=== PATIENT | female | born 1930 | race Caucasian/White ===

== ENCOUNTER 2017-05-15 11:12 | Inpatient (IN) | payer MEDICARE ==
[2017-05-15] VITALS (7 sets, daily range): BP systolic 130–193; BP diastolic 65–90; PULSE 70–79; RESP 18–22; TEMP 97.6–99.6; O2SAT 92–95
[~2017-05-15] VITALS: Ht 167.6 cm; Wt 89.8 kg
[~2017-05-15 11:12] MED LIST: ADVA250A INH; ALPR-138 PO; ATOR20TA42 PO; GABA300C3 PO; LIDO5%T TOP; OXYC1SOL5 PO; RAMI10CA35 PO; ZOLP10TA3 PO
[2017-05-15] MEDS ORDERED: SODIUM CHLORIDE 0.9% FLUSH 10 ML FLUSH IVF PRN (11:30)
--- NOTE | 2017-05-15 11:37 | PD ---
HPI Chief Complaint: General Weakness Time Seen by Provider: 11:24 Travel History International Travel<30 days: No Contact w/Intl Traveler<30days: No Traveled to known affect area: No History of Present Illness HPI 87-year-old female with PMH of COPD, osteoarthritis, chronic back pain presents to the ED via EMS for evaluation after fall x 2 today. She states that she fell this morning while she was attempting to administer an enema in her hotel room. She states that a worker was able to help her up after that. The patient states that later this morning her legs felt weak and she fell to the ground. This also occurred in the bathroom. She denies any dizziness, palpitations, chest pain associated with the falls. After the second fall she decided to call EMS. Patient states that she has had cough productive of yellow green sputum and low-grade fever for the last 5 or 6 days. She states that she went to a [facility] and was diagnosed with pneumonia and provided with an antibiotic prescription. She states that she's been unable to fill the prescription. On presentation she denies headache, dizziness, vision changes, chest pain, palpitations, shortness of breath, abdominal pain, nausea, vomiting , dysuria, joint pain, limitations to range of motion of the extremities. She endorses compliance with her daily medications. She does not use oxygen at home. PFSH Past Medical History Arthritis: Yes Anxiety: Yes High Cholesterol: Yes COPD: Yes Diminished Hearing: No Gastrointestinal Disorders: Yes (BOWEL OBSTRUCTION ) Hypertension: Yes Immunizations Current: Yes Ulcer: Yes (BLEEDING) Menopausal: Yes Past Surgical History Abdominal Surgery: Yes (COLON RESECTION ) Appendectomy: Yes Eye Surgery: Yes (CATARACTS ) Other Surgery: Yes (ULCER REPAIR, PARATHYROID ) Social History Alcohol Use: No Tobacco Use: No (QUIT) Substance Use: No Allergies-Medications (Allergen,Severity, Reaction): Coded Allergies: No Known Allergies (Unverified Adverse Reaction, Unknown, 05/15/17) Reported Meds & Prescriptions Reported Meds & Active Scripts Active Reported Celecoxib 200 Mg Cap 200 Mg PO BID Advair Diskus Inh (Fluticasone-Salmeterol Inh) 250-50 Mcg/Blist Aer 1 Puff INH BID Rinse mouth after use. Oxycodone-Acetaminophen 5-325 mg Tab 1 Tab PO Q6H PRN Gabapentin 600 Mg Tab 600 Mg PO BID Ambien (Zolpidem Tartrate) 10 Mg Tab 10 Mg PO HS Alprazolam 0.25 Mg Tab 0.25 Mg PO HS Citalopram (Citalopram Hydrobromide) 20 Mg Tab 20 Mg PO DAILY Ramipril 5 Mg Cap 5 Mg PO DAILY Atorvastatin (Atorvastatin Calcium) 20 Mg Tab 20 Mg PO HS Review of Systems Except as stated in HPI: all other systems reviewed are Neg Physical Exam Narrative GENERAL: Well-nourished, well-developed white female in no acute distress. SKIN: Focused skin assessment warm/dry. HEAD: Normocephalic. EYES: No scleral icterus. No injection or drainage. NECK: Supple, trachea midline. No JVD or lymphadenopathy. CARDIOVASCULAR: Regular rate and rhythm without murmurs, gallops, or rubs. RESPIRATORY: Breath sounds equal bilaterally, very mild, occasional end expiratory wheezing. No accessory muscle use. GASTROINTESTINAL: Abdomen soft, non-tender, nondistended. MUSCULOSKELETAL: No cyanosis, or edema. BACK: Nontender without obvious deformity. No CVA tenderness. Data Data Last Documented VS Vital Signs Date Time Temp Pulse Resp B/P (MAP) Pulse Ox O2 Delivery O2 Flow Rate FiO2 05/15/17 11:38 95 Nasal Cannula 2.00 05/15/17 11:38 05/15/17 11:22 99.6 79 19 Orders Orders Complete Blood Count With Diff (05/15/17 11:24) Comprehensive Metabolic Panel (05/15/17 11:24) B-Type Natriuretic Peptide (05/15/17 11:24) Act Partial Throm Time (Ptt) (05/15/17 11:24) Prothrombin Time / Inr (Pt) (05/15/17 11:24) Magnesium (Mg) (05/15/17 11:24) Troponin I (05/15/17 11:24) Urinalysis - C+S If Indicated (05/15/17 11:24) Iv Access Insert/Monitor (05/15/17 11:24) Electrocardiogram (05/15/17 11:24) Ecg Monitoring (05/15/17 11:24) Oximetry (05/15/17 11:24) Oxygen Administration (05/15/17 11:24) Chest, Single Ap (05/15/17 11:24) Sodium Chloride 0.9% Flush (Ns Flush) (05/15/17 11:30) Acetaminophen (Tylenol) (05/15/17 12:30) Ceftriaxone Inj (Rocephin Inj) (05/15/17 12:30) Azithromycin Inj (Zithromax Inj) (05/15/17 12:30) Blood Culture (05/15/17 12:25) Vascular Access Team Consult/P PRN (05/15/17 12:34) Vascular Poc Ultrasound (05/15/17 ) Admit Order (Ed Use Only) (05/15/17 13:20) Labs Laboratory Tests Test 05/15/17 12:00 White Blood Count 21.1 TH/MM3 Red Blood Count 4.29 MIL/MM3 Hemoglobin 12.7 GM/DL Hematocrit 38.8 % Mean Corpuscular Volume 90.6 FL Mean Corpuscular Hemoglobin 29.7 PG Mean Corpuscular Hemoglobin Concent 32.8 % Red Cell Distribution Width 13.8 % Platelet Count 254 TH/MM3 Mean Platelet Volume 7.6 FL Neutrophils (%) (Auto) 76.0 % Lymphocytes (%) (Auto) 9.6 % Monocytes (%) (Auto) 12.3 % Eosinophils (%) (Auto) 1.4 % Basophils (%) (Auto) 0.7 % Neutrophils # (Auto) 16.1 TH/MM3 Lymphocytes # (Auto) 2.0 TH/MM3 Monocytes # (Auto) 2.6 TH/MM3 Eosinophils # (Auto) 0.3 TH/MM3 Basophils # (Auto) 0.1 TH/MM3 CBC Comment AUTO DIFF Differential Total Cells Counted 100 Neutrophils % (Manual) 73 % Band Neutrophils % 9 % Lymphocytes % 10 % Monocytes % 7 % Eosinophils % 1 % Neutrophils # (Manual) 17.3 TH/MM3 Differential Comment FINAL DIFF MANUAL Toxic Vacuolation PRESENT Platelet Estimate NORMAL Platelet Morphology Comment ENLARGED Prothrombin Time 10.7 SEC Prothromb Time International Ratio 1.0 RATIO Activated Partial Thromboplast Time 28.6 SEC Blood Urea Nitrogen 22 MG/DL Creatinine 1.19 MG/DL Random Glucose 92 MG/DL Total Protein 7.6 GM/DL Albumin 3.0 GM/DL Calcium Level 8.6 MG/DL Magnesium Level 2.1 MG/DL Alkaline Phosphatase 205 U/L Aspartate Amino Transf (AST/SGOT) 46 U/L Alanine Aminotransferase (ALT/SGPT) 30 U/L Total Bilirubin 0.6 MG/DL Sodium Level 132 MEQ/L Potassium Level 5.1 MEQ/L Chloride Level 103 MEQ/L Carbon Dioxide Level 21.5 MEQ/L Anion Gap 8 MEQ/L Estimat Glomerular Filtration Rate 43 ML/MIN Troponin I 0.02 NG/ML B-Type Natriuretic Peptide 303 PG/ML MDM Medical Decision Making Medical Screen Exam Complete: Yes Emergency Medical Condition: Yes Differential Diagnosis PNA versus UTI versus metabolic arrangement versus musculoskeletal pain versus other Narrative Course 87-year-old female with PMH of COPD, recent diagnosis of pneumonia, untreated presents to the ED for evaluation after 2 falls this morning. She denies hitting her head or loss of consciousness in either fall. She has no musculoskeletal complaints. She endorses low-grade fever with cough productive of yellowish-green sputum 5 days. She does not use oxygen at home. Patient has low-grade fever on presentation. Physical exam reveals a nontoxic- appearing white female in no acute distress. O2 sats are 92% on room air, improved to 95% on 2 L nasal cannula. Lung sounds have very mild end expiratory wheezing and there is lower extremity edema bilaterally. Exam otherwise unremarkable. EKG rate 86, sinus rhythm with first-degree AV block and occasional PVCs. Normal axis. No acute ST changes. Reviewed by Dr. Garcia. CXR: Bibasilar areas of consolidation with small bibasilar pleural effusions. CBC: Leukocytosis of 21.1 with left shift. CMP: Sodium 132. BUN 22, creatinine 1.19. BNP 303 UA: Pending Patient was administered 500 mg Tylenol by mouth, 1 g Rocephin, 500 mg azithromycin IV. I discussed the results of the workup with the patient. She is agreeable to admission. I spoke with Dr. Hernandez who agrees to accept the patient to the medicine service. Please see medicine notes for disposition. Sepsis Criteria SIRS Criteria (2 or more): WBC > 58921, < 4000 or > 10% bands Blanche Laguerre May 15, 2017 11:37
[2017-05-15] MEDS ORDERED: RAMI5CAP PO (11:42)
[2017-05-15] MEDS ORDERED: ATOR20TA15 PO (11:42)
[2017-05-15] MEDS ORDERED: CITA20TA4 PO (11:42)
[2017-05-15] MEDS ORDERED: AMBI10TA PO (11:42)
[2017-05-15] MEDS ORDERED: OXYC1TAB63 PO (11:42)
[2017-05-15] MEDS ORDERED: ALPR0.25 PO (11:42)
[2017-05-15] MEDS ORDERED: GABA600T PO (11:42)
[2017-05-15] MEDS ORDERED: CELE1CAP8 PO (11:42)
[2017-05-15] MEDS ORDERED: ADVA250A INH (11:42)
--- NOTE | 2017-05-15 12:11 | RADRPT ---
EXAM DATE/TIME: 05/15/2017 11:44 [facility] COMPARISON: CHEST SINGLE AP, June 20, 2015, 15:04. INDICATIONS : Short of breath with dizziness. MEDICAL HISTORY : Myocardial infarction. SURGICAL HISTORY : Pacemaker. ENCOUNTER: Initial ACUITY: 1 day PAIN SCORE: 0/10 LOCATION: Bilateral chest FINDINGS: There is a pacing device seen in the right chest. The patient is rotated towards the left. The heart size is normal. There is increased density at the bases bilaterally. There is blunting of the costoph renic angles bilaterally. There is degenerative change of the glenohumeral joints. There is a dextros coliosis of the thoracic spine. CONCLUSION: Bibasilar areas of suspected consolidation or atelectasis. There also appear to be mild bilateral ple ural effusions. Quinn Murphy MD on May 15, 2017 at 12:09 Board Certified Radiologist. This report was verified electronically.
[2017-05-15 12:14] LABS: AUTOMATED NEUTROPHIL # 16.1 TH/MM3 (1.8-7.7); BASOPHIL # 0.1 TH/MM3 (0-0.2); BASOPHIL % 0.7 % (0.0-2.0); EOSINOPHIL # 0.3 TH/MM3 (0-0.4); EOSINOPHIL % 1.4 % (0.0-4.0); HEMATOCRIT 38.8 % (35.0-46.0); LYMPH % 9.6 % (9.0-44.0); MEAN CELL VOLUME 90.6 FL (80.0-100.0); MEAN CORPUSCULAR HEMOGLOBIN 29.7 PG (27.0-34.0); MEAN CORPUSCULAR HGB CONC 32.8 % (32.0-36.0); MONO % 12.3 % (0.0-8.0); PLATELET COUNT 254 TH/MM3 (150-450); RED BLOOD COUNT 4.29 MIL/MM3 (4.00-5.30); RED CELL DISTRIBUTION WIDTH 13.8 % (11.6-17.2); WHITE BLOOD COUNT 21.1 TH/MM3 (4.0-11.0)
[2017-05-15 12:23] LABS: HEMO FLAGS AUTO DIFF
[2017-05-15 12:25] LABS: APTT (PATIENT) 28.6 SEC (24.3-30.1); PROTHROMBIN TIME - PATIENT 10.7 SEC (9.8-11.6)
[2017-05-15 12:27] LABS: ALT (GPT) 30 U/L (10-53)
[2017-05-15 12:30] LABS: ALKALINE PHOSPHATASE 205 U/L (45-117); TOTAL BILIRUBIN ADULT 0.6 MG/DL (0.2-1.0)
[2017-05-15] MEDS ORDERED: AZITHROMYCIN INJ 500 MG in SODIUM CHLOR 0.9% 250 ML INJ 250 ML IV ONE (12:30)
[2017-05-15] MEDS ORDERED: cefTRIAXone INJ 1,000 MG in SODIUM CHLORIDE 0.9% INJ 100 ML IV ONE (12:30)
[2017-05-15] MEDS ORDERED: ACETAMINOPHEN 500 MG CPLT PO ONE (12:30)
[2017-05-15 12:36] LABS: ANION GAP 8 MEQ/L (5-15); BICARBONATE 21.5 MEQ/L (21.0-32.0); BLOOD UREA NITROGEN 22 MG/DL (7-18); CHLORIDE 103 MEQ/L (98-107); GLOMERULAR FILTRATION RATE 43 ML/MIN (>89); MAGNESIUM 2.1 MG/DL (1.5-2.5); SODIUM (NA) 132 MEQ/L (136-145)
[2017-05-15 12:37] LABS: AST (GOT) 46 U/L (15-37); POTASSIUM 5.1 MEQ/L (3.5-5.1)
[2017-05-15 13:10] LABS: BANDS 9 % (0-6); EOSINOPHILS 1 % (0-4); NEUTROPHIL # MANUAL DIFF 17.3 TH/MM3 (1.8-7.7); POLYS (SEG NEUTROPHILS) 73 % (16-70); WBC DIFF SAMPLE 100
[2017-05-15 13:11] LABS: PLATELET ESTIMATE SMEAR NORMAL (NORMAL); PLATELET MORPHOLOGY ENLARGED (NORMAL); TOXIC VACUOLATION PRESENT (NONE SEEN)
[2017-05-15 13:12] LABS: SCAN/DIFF FINAL DIFF MANUAL
--- NOTE | 2017-05-15 13:15 | PD ---
Physical Exam Date Seen by Provider: May 15, 2017 Time Seen by Provider: 12:30 Narrative I, Dr. Jacques, have reviewed the advance practice practitioner's documentation and am in agreement, met with the patient face to face, made the diagnosis, and the medical decision making was done by me. *My assessment and Findings: Patient seen and evaluated with CHIO Calvo, please see previous notes for further details. Patient is coming in for worsening weakness, apparently had been seen at urgent care and was diagnosed with pneumonia recently. On exam, appears more lethargic, decreased breath sounds on the right compared to the left, decreased at the bases. Laboratory Tests Test 05/15/17 12:00 White Blood Count 21.1 TH/MM3 (4.0-11.0) Neutrophils (%) (Auto) 76.0 % (16.0-70.0) Monocytes (%) (Auto) 12.3 % (0.0-8.0) Neutrophils # (Auto) 16.1 TH/MM3 (1.8-7.7) Monocytes # (Auto) 2.6 TH/MM3 (0-0.9) Neutrophils % (Manual) 73 % (16-70) Band Neutrophils % 9 % (0-6) Neutrophils # (Manual) 17.3 TH/MM3 (1.8-7.7) Toxic Vacuolation PRESENT (NONE SEEN) Platelet Morphology Comment ENLARGED (NORMAL) Blood Urea Nitrogen 22 MG/DL (7-18) Creatinine 1.19 MG/DL (0.50-1.00) Albumin 3.0 GM/DL (3.4-5.0) Alkaline Phosphatase 205 U/L (45-117) Aspartate Amino Transf (AST/SGOT) 46 U/L (15-37) Sodium Level 132 MEQ/L (136-145) Estimat Glomerular Filtration Rate 43 ML/MIN (>89) B-Type Natriuretic Peptide 303 PG/ML (0-100) Last 24 hours Impressions Chest X-Ray 05/15/17 1124 Signed Impressions: Service Date/Time: Monday, May 15, 2017 11:44 - CONCLUSION: Bibasilar areas of suspected consolidation or atelectasis. There also appear to be mild bilateral pleural effusions. Quinn Murphy MD Chest x-ray is showing increasing consolidation with notable leukocytosis on lab work, suspected for worsening pneumonia. IV antibiotics initiated in the ER. Cultures done. Planning to admit to hospitalist service for further treatment. Data Data Last Documented VS Vital Signs Date Time Temp Pulse Resp B/P (MAP) Pulse Ox O2 Delivery O2 Flow Rate FiO2 05/15/17 11:38 95 Nasal Cannula 2.00 05/15/17 11:38 05/15/17 11:22 99.6 79 19 Orders Orders Complete Blood Count With Diff (05/15/17 11:24) Comprehensive Metabolic Panel (05/15/17 11:24) B-Type Natriuretic Peptide (05/15/17 11:24) Act Partial Throm Time (Ptt) (05/15/17 11:24) Prothrombin Time / Inr (Pt) (05/15/17 11:24) Magnesium (Mg) (05/15/17 11:24) Troponin I (05/15/17 11:24) Urinalysis - C+S If Indicated (05/15/17 11:24) Iv Access Insert/Monitor (05/15/17 11:24) Electrocardiogram (05/15/17 11:24) Ecg Monitoring (05/15/17 11:24) Oximetry (05/15/17 11:24) Oxygen Administration (05/15/17 11:24) Chest, Single Ap (05/15/17 11:24) Sodium Chloride 0.9% Flush (Ns Flush) (05/15/17 11:30) Acetaminophen (Tylenol) (05/15/17 12:30) Ceftriaxone Inj (Rocephin Inj) (05/15/17 12:30) Azithromycin Inj (Zithromax Inj) (05/15/17 12:30) Blood Culture (05/15/17 12:25) Vascular Access Team Consult/P PRN (05/15/17 12:34) Vascular Poc Ultrasound (05/15/17 ) Labs Laboratory Tests Test 05/15/17 12:00 White Blood Count 21.1 TH/MM3 Red Blood Count 4.29 MIL/MM3 Hemoglobin 12.7 GM/DL Hematocrit 38.8 % Mean Corpuscular Volume 90.6 FL Mean Corpuscular Hemoglobin 29.7 PG Mean Corpuscular Hemoglobin Concent 32.8 % Red Cell Distribution Width 13.8 % Platelet Count 254 TH/MM3 Mean Platelet Volume 7.6 FL Neutrophils (%) (Auto) 76.0 % Lymphocytes (%) (Auto) 9.6 % Monocytes (%) (Auto) 12.3 % Eosinophils (%) (Auto) 1.4 % Basophils (%) (Auto) 0.7 % Neutrophils # (Auto) 16.1 TH/MM3 Lymphocytes # (Auto) 2.0 TH/MM3 Monocytes # (Auto) 2.6 TH/MM3 Eosinophils # (Auto) 0.3 TH/MM3 Basophils # (Auto) 0.1 TH/MM3 CBC Comment AUTO DIFF Prothrombin Time 10.7 SEC Prothromb Time International Ratio 1.0 RATIO Activated Partial Thromboplast Time 28.6 SEC Blood Urea Nitrogen 22 MG/DL Creatinine 1.19 MG/DL Random Glucose 92 MG/DL Total Protein 7.6 GM/DL Albumin 3.0 GM/DL Calcium Level 8.6 MG/DL Magnesium Level 2.1 MG/DL Alkaline Phosphatase 205 U/L Aspartate Amino Transf (AST/SGOT) 46 U/L Alanine Aminotransferase (ALT/SGPT) 30 U/L Total Bilirubin 0.6 MG/DL Sodium Level 132 MEQ/L Potassium Level 5.1 MEQ/L Chloride Level 103 MEQ/L Carbon Dioxide Level 21.5 MEQ/L Anion Gap 8 MEQ/L Estimat Glomerular Filtration Rate 43 ML/MIN Troponin I 0.02 NG/ML B-Type Natriuretic Peptide 303 PG/ML [facility] Medical Record Reviewed: Yes Supervised Visit with TORO: Yes Diagnosis Primary Impression: Near syncope Additional Impression: Pneumonia Admitting Information Admitting Physician Requests: Admit Adriana Jacques MD May 15, 2017 13:15
[2017-05-15] MEDS ORDERED: SODIUM CHLORID 0.9% 500 ML INJ 500 ML IV ONE (13:45)
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
[2017-05-15] MEDS ORDERED: ENALAPRILAT 1.25 MG/ML VIAL IV PUSH PRN (14:00)
[2017-05-15] MEDS ORDERED: guaiFENesin SOLUTION 200 MG/10 ML CUP PO PRN (15:00)
[2017-05-15] MEDS ORDERED: RESP: ALBUTEROL 2.5 MG/IPRATROPIUM 0.5 MG NEB (PRN) NEB (16:00)
[2017-05-15] MEDS: ATORVASTATIN 20 MG TAB PO SCH (20:27)
[2017-05-15] MEDS: BUDESONIDE-FORMOTEROL 160/4.5 MCG INHALER INH SCH (20:27)
[2017-05-15] MEDS: GABAPENTIN 300 MG CAP PO SCH (20:27)
[2017-05-15 22:25] LABS: BLOOD, URINE NEG (NEG); GLUCOSE,URINE NEG (NEG); KETONE, URINE NEG (NEG); NITRITE,URINE NEG (NEG); PH, URINE 7.5 (5.0-8.5); URINE COLOR LIGHT-YELLOW (YELLW/STRAW)
[2017-05-15 22:29] LABS: COMMENT (UR) CULT NOT INDICATED; CULTURE IF INDICATED CULT NOT INDICATED
[2017-05-16] VITALS (9 sets, daily range): BP systolic 147–191; BP diastolic 67–84; PULSE 65–83; RESP 20–21; TEMP 97.5–98.9; O2SAT 92–97
[2017-05-16] MEDS: ACETAMINOPHEN 325 MG TAB PO PRN (00:34)
[2017-05-16] MEDS: ALPRAZolam 0.25 MG TAB PO PRN (00:34)
[2017-05-16 08:50] LABS: AUTOMATED NEUTROPHIL # 12.4 TH/MM3 (1.8-7.7); BASOPHIL # 0.1 TH/MM3 (0-0.2); BASOPHIL % 0.5 % (0.0-2.0); EOSINOPHIL # 0.2 TH/MM3 (0-0.4); EOSINOPHIL % 1.3 % (0.0-4.0); HEMATOCRIT 35.6 % (35.0-46.0); LYMPHOCYTE # 2.1 TH/MM3 (1.0-4.8); MEAN CELL VOLUME 90.2 FL (80.0-100.0); MEAN CORPUSCULAR HEMOGLOBIN 28.9 PG (27.0-34.0); MONO % 15.4 % (0.0-8.0); NEUT % 70.8 % (16.0-70.0); PLATELET COUNT 256 TH/MM3 (150-450); RED BLOOD COUNT 3.95 MIL/MM3 (4.00-5.30); RED CELL DISTRIBUTION WIDTH 13.6 % (11.6-17.2); WHITE BLOOD COUNT 17.5 TH/MM3 (4.0-11.0)
[2017-05-16 08:51] LABS: HEMO FLAGS AUTO DIFF
[2017-05-16] MEDS: RAMIPRIL 5 MG CAP PO SCH (08:54)
[2017-05-16] MEDS: CITALOPRAM HYDROBROMIDE 20 MG TAB PO SCH (08:55)
[2017-05-16] MEDS: GABAPENTIN 300 MG CAP PO SCH ×2 (08:55→21:19)
[2017-05-16] MEDS: HEPARIN SODIUM - SQ 10,000 UNITS/ML VIAL SQ SCH ×2 (08:57→21:18)
[2017-05-16] MEDS: BUDESONIDE-FORMOTEROL 160/4.5 MCG INHALER INH SCH ×2 (08:59→21:18)
[2017-05-16 09:17] LABS: BICARBONATE 20.6 MEQ/L (21.0-32.0); POTASSIUM 3.8 MEQ/L (3.5-5.1)
[2017-05-16 09:22] LABS: SCAN/DIFF AUTO DIFF CONFIRMED
--- NOTE | 2017-05-16 09:33 | HHI.PR ---
Subjective Remarks Follow-up visit community-acquired pneumonia, COPD, HTN. Patient seen and examined today. She is sitting up at the edge of the bed and has ambulated towards the bathroom using a walker. Patient states that she is feeling a little bit better. Cough is still present but not as much. SHe states that she is not expectorating as much compared to prior. Mucous have subsided. States that her shortness of breath has improved compared to yesterday. Complains of constipation, states that she has been using fleets enema when she does not go to the bathroom. She is able to move her bowels today but states that when she eats she is going to probably need fleets enema tomorrow. Patient also complains of unable to sleep last night states that her eyes were closed but her mind was racing. Reports she has been on Ambien and Xanax at home and requesting to be placed on it. Denies chest pain, palpitations, dizziness, headaches. Denies wheezing. Denies fevers, chills, nausea, vomiting , diarrhea. Denies dysuria. Objective Vitals Vital Signs Date Time Temp Pulse Resp B/P (MAP) Pulse Ox O2 Delivery O2 Flow Rate FiO2 05/16/17 08:00 98.4 69 20 177/84 (115) 95 05/16/17 04:02 97 Nasal Cannula 2.00 05/16/17 04:00 97.7 68 21 147/67 (93) 96 05/16/17 04:00 Nasal Cannula 2.00 05/16/17 00:00 98.2 76 21 168/77 (107) 94 05/15/17 20:00 97.8 70 22 162/77 (105) 95 05/15/17 20:00 Nasal Cannula 2.00 05/15/17 16:00 97.6 73 18 130/70 (90) 92 05/15/17 14:50 05/15/17 14:32 95 Nasal Cannula 2.00 05/15/17 14:30 71 19 142/71 (94) 95 Nasal Cannula 2.00 05/15/17 13:27 77 22 146/65 (92) 95 Nasal Cannula 2.00 05/15/17 11:38 95 Nasal Cannula 2.00 05/15/17 11:38 95 Nasal Cannula 2.00 05/15/17 11:22 99.6 79 19 193/90 (402) 92 Nasal Cannula 2.00 I/O 05/15/17 05/15/17 05/15/17 05/16/17 05/16/17 05/16/17 07:00 15:00 23:00 07:00 15:00 23:00 Intake Total 100 ml 700 ml Output Total 1200 ml Balance 100 ml -500 ml Intake Oral 200 ml IV Total 100 ml 500 ml Output Urine Total 1200 ml Result Diagram: 05/16/17 0815 05/16/17 0815 Imaging Last Impressions Chest X-Ray 05/15/17 1124 Signed Impressions: Service Date/Time: Saturday, May 15, 2017 11:44 - CONCLUSION: Bibasilar areas of suspected consolidation or atelectasis. There also appear to be mild bilateral pleural effusions. Quinn Murphy MD Objective Remarks GENERAL: This is an obese, well-developed patient, in no apparent distress. SKIN: Warm and dry. HEENT: Normocephalic. Pupils equal round and reactive. Nose without bleeding. Airway patent. NECK: Trachea midline. No JVD. Supple. CARDIOVASCULAR: Regular rate and rhythm without murmurs, gallops, or rubs. RESPIRATORY: Rhonchi BUL. Minimal wheeze. GASTROINTESTINAL: Abdomen soft, non-tender, nondistended. Bowel Sounds normoactive x4. MUSCULOSKELETAL: Extremities without clubbing, cyanosis. Lymphedema bilat lower extremities. NEUROLOGICAL: Awake and alert. Oriented to time, place, person. No focal neuro deficit. Moves all extremities. Normal speech. A/P Problem List: (1) Fall ICD Code: W19.XXXA - Unspecified fall, initial encounter (2) Pneumonia ICD Code: J18.9 - Pneumonia, unspecified organism Status: Acute Assessment and Plan Patient is an 87-year-old female with primary medical history of COPD, hypertension, despite anemia, lymphedema, symptomatic bradycardia status post PPM who came in today ED with shortness of breath and cough. Community-acquired pneumonia, not meeting SIRS or Sepsis Criteria History of COPD - Chest x-ray showed bibasilar area of suspected consolidation or atelectasis. There also appears to be mild bilateral pleural effusions. - Continue IV antibiotics azithromycin, ceftriaxone - DuoNeb scheduled, Symbicort - Guaifenesin when necessary - WBC with leukocytosis 21.1 --> 17.5 trending down - Follow-up blood cultures - O2 nasal cannula when necessary, titrate to O2 sat greater than 90% Acute kidney injury - Creatinine 1.19 --> 1.09 - improving - Avoid nephrotoxins - Hydration was given IV fluid replacements but because of the pleural effusions and cardiac history we will discontinue for the meantime not to overload the patient. Status post fall - Physical therapy to eval and treat - No obvious injuries patient has been ambulatory HTN, HLD, chronic - Continue with ramipril, statin medication - Monitor BP trend. Vasotec when necessary DVT prop heparin subcutaneous Discharge Planning Plan to DC home tomorrow with by mouth antibiotics if clinically improved. Problem Qualifiers (1) Pneumonia: Qualified Codes: J18.9 - Pneumonia, unspecified organism Yadira Ceron May 16, 2017 09:33
[2017-05-16] MEDS ORDERED: INFLUENZA VIRUS VACCINE (QUADRIVALENT) 0.5 ML SYR IM ONE (10:00)
--- NOTE | 2017-05-16 10:50 | EKG ---
Date Performed: 05/15/2017 Time Performed: 11:37:46 PTAGE: 87 years EKG: Sinus rhythm WITH FIRST DEGREE AV BLOCK WITH OCCASIONAL VENTRICULAR PREMATURE COMPLEXES WITH OCCASIONAL SUPRAVENT RICULAR PREMATURE COMPLEXES ABNORMAL ECG PREVIOUS TRACING : 06/20/2015 07.10 DOCTOR: Rashard Armendariz Interpretating Date/Time 05/16/2017 10:48:13
[2017-05-16] MEDS: RESP: ALBUTEROL 2.5 MG/IPRATROPIUM 0.5 MG NEB (SCH) NEB ×2 (13:06→19:06)
[2017-05-16] MEDS ORDERED: cefTRIAXone INJ 1,000 MG in SODIUM CHLORIDE 0.9% INJ 100 ML IV SCH (14:30)
[2017-05-16] MEDS ORDERED: AZITHROMYCIN INJ 500 MG in SODIUM CHLOR 0.9% 250 ML INJ 250 ML IV SCH (15:00)
[2017-05-16] MEDS: ATORVASTATIN 20 MG TAB PO SCH (21:19)
[2017-05-17] VITALS: BP 188/88; PULSE 73; RESP 20; TEMP 98.6; O2SAT 93
[2017-05-17] MEDS: ALPRAZolam 0.25 MG TAB PO PRN (01:35)
[2017-05-17] MEDS: ACETAMINOPHEN 325 MG TAB PO PRN (01:36)
[2017-05-17 04:00] VITALS: BP 162/77; PULSE 70; RESP 20; TEMP 97.8; O2SAT 94
[2017-05-17 08:00] VITALS: BP 190/84; PULSE 64; RESP 18; TEMP 97.3; O2SAT 92
[2017-05-17] MEDS: RESP: ALBUTEROL 2.5 MG/IPRATROPIUM 0.5 MG NEB (SCH) NEB (08:13)
[2017-05-17 08:18] VITALS: O2SAT 92
[2017-05-17] MEDS: BUDESONIDE-FORMOTEROL 160/4.5 MCG INHALER INH SCH (08:56)
[2017-05-17] MEDS: GABAPENTIN 300 MG CAP PO SCH (08:57)
[2017-05-17] MEDS: RAMIPRIL 5 MG CAP PO SCH (08:57)
[2017-05-17] MEDS: CITALOPRAM HYDROBROMIDE 20 MG TAB PO SCH (08:57)
[2017-05-17] MEDS: HEPARIN SODIUM - SQ 10,000 UNITS/ML VIAL SQ SCH (08:57)
[2017-05-17] MEDS ORDERED: SODIUM CHLOR 0.9% 1000 ML INJ 1,000 ML IV SCH (09:15)
[2017-05-17] MEDS ORDERED: amLODIPine BESYLATE 5 MG TAB PO SCH (10:15)
[2017-05-17] MEDS ORDERED: BENZONATATE 100 MG CAP PO ONE (10:30)
[2017-05-17] MEDS ORDERED: BENZONATATE 100 MG CAP PO PRN (10:30)
[2017-05-17] MEDS ORDERED: RAMI5CAP PO (10:37)
[2017-05-17] MEDS ORDERED: DOXY100C PO (10:37)
[2017-05-17] MEDS ORDERED: BENZ100 PO (10:37)
[2017-05-17] MEDS ORDERED: AMLO5 PO (10:37)
--- NOTE | 2017-05-17 10:48 | HHI.PR ---
Subjective Remarks The patient complains of a persistent cough. She does endorse some mucus production. She said she would like to go home today. She has been ambulating. She says that her blood pressure has been trending upwards lately. She says she chronically has swelling in her legs secondary to lymphedema. Discussed with nursing. Objective Vitals Vital Signs Date Time Temp Pulse Resp B/P (MAP) Pulse Ox O2 Delivery O2 Flow Rate FiO2 05/17/17 09:05 Room Air 05/17/17 08:18 92 05/17/17 08:00 97.3 64 18 190/84 (119) 92 05/17/17 04:00 97.8 70 20 162/77 (105) 94 05/17/17 00:00 98.6 73 20 188/88 (121) 93 05/16/17 20:00 98.9 82 20 191/81 (117) 94 05/16/17 20:00 Room Air 05/16/17 19:06 92 Nasal Cannula 2.00 05/16/17 16:00 98.0 83 20 171/72 (105) 92 05/16/17 12:00 97.5 65 20 169/79 (109) 95 I/O 05/16/17 05/16/17 05/16/17 05/17/17 05/17/17 05/17/17 07:00 15:00 23:00 07:00 15:00 23:00 Intake Total 700 ml 480 ml 350 ml 240 ml Output Total 1200 ml Balance -500 ml 480 ml 350 ml 240 ml Intake Oral 200 ml 480 ml 240 ml IV Total 500 ml 350 ml Output Urine Total 1200 ml # Voids 2 Result Diagram: 05/16/17 0815 05/16/17 0815 Imaging Last Impressions Chest X-Ray 05/15/17 1124 Signed Impressions: Service Date/Time: Monday, May 15, 2017 11:44 - CONCLUSION: Bibasilar areas of suspected consolidation or atelectasis. There also appear to be mild bilateral pleural effusions. Quinn Murphy MD Objective Remarks GENERAL: This is a well-developed elderly patient, in no apparent distress. SKIN: Warm and dry. HEENT: Normocephalic. Pupils equal round and reactive. Nose without bleeding. Airway patent. NECK: Trachea midline. No JVD. Supple. CARDIOVASCULAR: Systolic murmur appreciated.. RESPIRATORY: Rhonchi BUL. Minimal wheeze. GASTROINTESTINAL: Abdomen soft, non-tender, nondistended. Bowel Sounds normoactive x4. MUSCULOSKELETAL: Extremities without clubbing, cyanosis. Lymphedema bilat lower extremities. NEUROLOGICAL: Awake and alert. Oriented to time, place, person. No focal neuro deficit. Moves all extremities. Normal speech. PSYCH: Mood and affect appropriate. Medications and IVs Current Medications Medications (Trade) Dose Ordered Sig/Hiral Route Start Time Stop Time Status Last Admin (NS Flush) 2 ml UNSCH PRN IVF 05/15/17 11:30 Ceftriaxone Sodium 1000 mg/ Sodium Chloride 100 ml @ 200 mls/hr Q24H IV 05/16/17 14:30 05/16/17 14:16 Azithromycin 500 mg/Sodium Chloride 250 ml @ 250 mls/hr Q24H IV 05/16/17 15:00 05/16/17 15:00 (Tylenol) 650 mg Q4H PRN PO 05/15/17 18:00 05/17/17 01:36 (Duoneb Neb) 1 ampule Q6HR NEB PRN NEB 05/15/17 16:00 (Vasotec Inj) 1.25 mg Q8HR PRN IV PUSH 05/15/17 14:00 05/16/17 21:19 (Xanax) 0.25 mg HS PRN PO 05/15/17 13:45 05/17/17 01:35 (Lipitor) 20 mg HS PO 05/15/17 21:00 05/16/17 21:19 (CeleXA) 20 mg DAILY PO 05/16/17 09:00 05/17/17 08:57 (Neurontin) 600 mg BID PO 05/15/17 21:00 05/17/17 08:57 (Symbicort 160-4.5 Inh) 2 puff BID INH 05/15/17 21:00 05/17/17 08:56 (Heparin Inj) 5,000 units Q12HR SQ 05/16/17 09:00 05/17/17 08:57 (Robitussin Liq) 200 mg Q4H PRN PO 05/15/17 15:00 (Duoneb Neb) 1 ampule Q6HR WHILE AWAKE NEB NEB 05/16/17 14:00 05/17/17 08:13 (Altace) 5 mg BID PO 05/17/17 21:00 (Norvasc) 5 mg DAILY PO 05/17/17 10:15 (Tessalon) 100 mg TID PRN PO 05/17/17 10:30 A/P Problem List: (1) Fall ICD Code: W19.XXXA - Unspecified fall, initial encounter (2) Pneumonia ICD Code: J18.9 - Pneumonia, unspecified organism Status: Acute Assessment and Plan Patient is an 87-year-old female with a primary medical history of COPD, hypertension, anemia, lymphedema, symptomatic bradycardia status post PPM who came in to the ED with shortness of breath and cough. Community-acquired pneumonia, not meeting SIRS or Sepsis Criteria History of COPD - Chest x-ray showed bibasilar area of suspected consolidation or atelectasis. There also appears to be mild bilateral pleural effusions. - Continue IV antibiotics azithromycin, ceftriaxone. Change to PO doxycycline upon discharge. - DuoNeb scheduled, Symbicort. Resume home inhalers upon discharge. - Guaifenesin when necessary - WBC with leukocytosis 21.1 --> 17.5 trending down. - Follow-up blood cultures. NGTD. - O2 nasal cannula when necessary, titrate to O2 sat greater than 90%. Walk test requested. Acute kidney injury - Creatinine 1.19 --> 1.09 - improving - Avoid nephrotoxins - s/p IVFs. Status post fall - Physical therapy. - No obvious injuries and the patient has been ambulatory HTN Uncontrolled. - Continue with ramipril, increase to BID dosing. Amlodipine 5 mg daily has been added. - Vasotec when necessary. DVT prop heparin subcutaneous Discharge Planning D/c later today if blood pressure is improved and after walk test. Problem Qualifiers (1) Pneumonia: Qualified Codes: J18.9 - Pneumonia, unspecified organism Yrn Urban DO May 17, 2017 10:48
[2017-05-17 11:52] LABS: AUTOMATED NEUTROPHIL # 7.8 TH/MM3 (1.8-7.7); BASOPHIL # 0.1 TH/MM3 (0-0.2); BASOPHIL % 0.5 % (0.0-2.0); EOSINOPHIL # 0.1 TH/MM3 (0-0.4); EOSINOPHIL % 1.1 % (0.0-4.0); HEMATOCRIT 38.4 % (35.0-46.0); LYMPH % 13.6 % (9.0-44.0); LYMPHOCYTE # 1.6 TH/MM3 (1.0-4.8); MEAN CELL VOLUME 89.5 FL (80.0-100.0); MEAN CORPUSCULAR HEMOGLOBIN 29.2 PG (27.0-34.0); MEAN CORPUSCULAR HGB CONC 32.6 % (32.0-36.0); MONO % 18.4 % (0.0-8.0); NEUT % 66.4 % (16.0-70.0); PLATELET COUNT 294 TH/MM3 (150-450); RED BLOOD COUNT 4.29 MIL/MM3 (4.00-5.30); RED CELL DISTRIBUTION WIDTH 13.8 % (11.6-17.2); WHITE BLOOD COUNT 11.8 TH/MM3 (4.0-11.0)
[2017-05-17 11:57] LABS: HEMO FLAGS AUTO DIFF
[2017-05-17 12:00] VITALS: BP 153/76; PULSE 76; RESP 17; TEMP 97.5; O2SAT 91
[2017-05-17 12:13] LABS: BICARBONATE 20.1 MEQ/L (21.0-32.0); POTASSIUM 3.5 MEQ/L (3.5-5.1)
--- NOTE | 2017-05-17 12:51 | HHI.DCPOC ---
Discharge Care Plan Diagnosis: (1) Pneumonia (2) HTN (hypertension) (3) COPD (chronic obstructive pulmonary disease) (4) Lymphedema Goals to Promote Your Health * To prevent worsening of your condition and complications * To maintain your health at the optimal level Directions to Meet Your Goals Take your medications as prescribed Follow your dietary instruction Follow activity as directed Keep your appointments as scheduled Take your immunizations and boosters as scheduled If your symptoms worsen call your PCP, if no PCP go to Urgent Care Center or Emergency Room Smoking is Dangerous to Your Health. Avoid second hand smoke Call the 24-hour hour crisis hotline for domestic abuse at Yrn Urban DO May 17, 2017 12:51
[2017-05-17 13:21] LABS: BANDS 2 % (0-6); MYELOCYTES 1 % (0-0); NEUTROPHIL # MANUAL DIFF 8.6 TH/MM3 (1.8-7.7); POLYS (SEG NEUTROPHILS) 70 % (16-70); WBC DIFF SAMPLE 100
[2017-05-17 13:22] LABS: PLATELET ESTIMATE SMEAR NORMAL (NORMAL); PLATELET MORPHOLOGY NORMAL (NORMAL)
[2017-05-17 13:23] LABS: SCAN/DIFF FINAL DIFF MANUAL
[2017-05-17] MEDS ORDERED: RAMIPRIL 5 MG CAP PO SCH (21:00)
== END 2017-05-17 14:55 | disposition home or self-care (01) | DRG 190 ==
LOC: NEPC 11:12 → NEDA 13:23 → N04A 14:45
PROVIDERS: ADMIT Hospitalist; ATTEND Hospitalist
DX: J44.0 Chronic obstructive pulmonary disease with (acute) lower respiratory infection (principal); J18.9 Pneumonia, unspecified organism; N17.9 Acute kidney failure, unspecified; J90 Pleural effusion, not elsewhere classified; I10 Essential (primary) hypertension; F41.9 Anxiety disorder, unspecified; M19.90 Unspecified osteoarthritis, unspecified site; E78.5 Hyperlipidemia, unspecified; I89.0 Lymphedema, not elsewhere classified; Z95.0 Presence of cardiac pacemaker; Z87.891 Personal history of nicotine dependence; Z91.81 History of falling; Z23 Encounter for immunization
CPT/HCPCS: 71010; 76937; 80048; 80053; 81001; 83735; 83880; 84484; 85007; 85025; 85027; 85610; 85730; 87040; 90686; 93005; 94620; 94640; 94664; 99285; J0456; J0696; J1644; J7030; J7040; J7050; Q2038

== ENCOUNTER 2017-08-04 01:09 | Observation (INO) | payer MEDICARE ==
[2017-08-04] VITALS (7 sets, daily range): BP systolic 111–150; BP diastolic 59–75; PULSE 52–110; RESP 16–20; TEMP 97.5–98.7; O2SAT 94–98
[~2017-08-04] VITALS: Ht 167.6 cm; Wt 130.0 kg
[~2017-08-04 01:09] MED LIST changes: -ALPR-138 PO; +ALPR0.25 PO; +AMBI10TA PO; +AMLO5 PO; +ATOR20TA15 PO; -ATOR20TA42 PO; +BENZ100 PO; +CELE1CAP8 PO; +CITA20TA4 PO; +DOXY100C PO; -GABA300C3 PO; +GABA600T PO; -LIDO5%T TOP; -OXYC1SOL5 PO; +OXYC1TAB63 PO; -RAMI10CA35 PO; +RAMI5CAP PO; -ZOLP10TA3 PO
--- NOTE | 2017-08-04 01:47 | PD ---
HPI Chief Complaint: Allergic/Adverse Reaction Time Seen by Provider: 01:46 Travel History International Travel<30 days: No Contact w/Intl Traveler<30days: No Traveled to known affect area: No History of Present Illness HPI 87-year-old female was brought to the emergency room by EMS after she started experiencing some tingling and numbness around her lips and tongue. Patient identified this as an allergic reaction. When EMS arrived they did not notice anything but patient requested Benadryl and she was given 50 mg of IV Benadryl. Driving in the emergency room her lips and tongue has started to swell up. Patient does not have any problems swallowing or breathing. She has never had allergic reactions in the past. Patient is on FLO inhibitor. Vital signs otherwise stable. [facility] Past Medical History Narrative Medical List of her past medical, surgical, social and family history is reviewed from the nursing note. 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 Reported Meds & Prescriptions Reported Meds & Active Scripts Active Reported Lidocaine Topical (Lidocaine HCl) 5 % Oint 1 Applic TOPICAL DAILY PRN Celecoxib 200 Mg Cap 200 Mg PO BID Oxycodone-Acetaminophen 5-325 mg Tab 1 Tab PO Q6H PRN Gabapentin 600 Mg Tab 600 Mg PO BID Ambien (Zolpidem Tartrate) 10 Mg Tab 10 Mg PO HS Alprazolam 0.25 Mg Tab 0.25 Mg PO HS Citalopram (Citalopram Hydrobromide) 20 Mg Tab 20 Mg PO DAILY Atorvastatin (Atorvastatin Calcium) 20 Mg Tab 20 Mg PO HS Narrative Medication List of her home medications reviewed from the nursing note. Review of Systems Except as stated in HPI: all other systems reviewed are Neg Physical Exam Narrative GENERAL: Awake, alert, elderly, mild distress SKIN: Focused skin assessment warm/dry. HEAD: Atraumatic. Normocephalic. EYES: Pupils equal and round. No scleral icterus. No injection or drainage. ENT: No nasal bleeding or discharge. Mucous membranes pink and moist. Moderate angioedema of the lower lip and tongue. Uvula and the pharynx appears to be normal. No stridor. NECK: Trachea midline. No JVD. CARDIOVASCULAR: Regular rate and rhythm. No murmur appreciated. RESPIRATORY: No accessory muscle use. Clear to auscultation. Breath sounds equal bilaterally. GASTROINTESTINAL: Abdomen soft, non-tender, nondistended. Hepatic and splenic margins not palpable. MUSCULOSKELETAL: No obvious deformities. No clubbing. No cyanosis. No edema. NEUROLOGICAL: Awake and alert. No obvious cranial nerve deficits. Motor grossly within normal limits. Normal speech. PSYCHIATRIC: Appropriate mood and affect; insight and judgment normal. Data Data Last Documented VS Vital Signs Date Time Temp Pulse Resp B/P (MAP) Pulse Ox O2 Delivery O2 Flow Rate FiO2 08/04/17 04:51 52 16 122/60 (80) 98 08/04/17 01:19 97.6 Orders Orders Methylprednisolone So Succ Inj (Solumedr (08/04/17 02:00) Complete Blood Count With Diff (08/04/17 05:27) Basic Metabolic Panel (Bmp) (08/04/17 05:27) Admit Order (Ed Use Only) (08/04/17 05:27) ^ Saline Lock (08/04/17 05:28) MDM Medical Decision Making Medical Screen Exam Complete: Yes Emergency Medical Condition: Yes Medical Record Reviewed: Yes Differential Diagnosis Allergic reaction, anaphylactoid reaction Narrative Course 3:40 AM patient was given IV Solu-Medrol. She will be observed for a total of 4 hours which should finish at 5 AM. I'll reassess her and she does better she will be discharged home. 5:09 AM patient was reassessed. She still has significant swelling of her tongue and lower lip. I would like to admit her at this point for observation. Procedures EKG Prior to Arrival: No Diagnosis Primary Impression: Angio-edema Qualified Codes: T78.3XXA - Angioneurotic edema, initial encounter Additional Impression: Anaphylactoid reaction Qualified Codes: T78.2XXA - Anaphylactic shock, unspecified, initial encounter Admitting Information Admitting Physician Requests: Observation Scripts Prednisone (Prednisone) 20 Mg Tab 20 MG PO BID for Allergic Reaction for 5 Days, #10 TAB Prov: Cheryl Sanchez PA-C 08/05/17 Famotidine (Famotidine) 20 Mg Tab 10 MG PO BID for Allergic Reaction for 5 Days, #10 TAB Prov: Cheryl Sanchez PA-C 08/05/17 Diphenhydramine HCl (Benadryl Allergy) 25 Mg Cap 25 MG PO Q6H for Allergic Reaction for 5 Days, #20 CAP Prov: Cheryl Sanchez PA-C 08/05/17 Epinephrine Inj (Epinephrine Inj) 0.3 Mg/0.3 Ml Pfpen 0.3 MG IM ONCE Y for ALLERGIC REACTION, #1 PEN 0 Refills Prov: Cheryl Sanchez PA-C 08/05/17 Sujata Canales MD Aug 04, 2017 01:47
[2017-08-04] MEDS ORDERED: methylPREDNISolone SOD SUCC 125 MG/2 ML VIAL IV PUSH ONE (02:00)
[2017-08-04] MEDS ORDERED: MAGNESIUM HYDROXIDE SUSP 30 ML CUP PO PRN (05:30)
[2017-08-04] MEDS ORDERED: SENNOSIDES 8.6 MG TAB PO PRN (05:30)
[2017-08-04] MEDS ORDERED: ONDANSETRON HCL 4 MG/2 ML VIAL IVP PRN (05:30)
[2017-08-04] MEDS ORDERED: MORPHINE SULFATE 2 MG/ML INJ IV PUSH PRN (05:30)
[2017-08-04] MEDS ORDERED: SODIUM CHLORIDE 0.9% FLUSH 10 ML FLUSH IV FLUSH PRN (05:30)
[2017-08-04] MEDS ORDERED: BISACODYL 10 MG SUPP RECTAL PRN (05:30)
[2017-08-04] MEDS ORDERED: ACETAMINOPHEN/HYDROcodone 325 MG/5 MG TAB PO PRN (05:30)
[2017-08-04] MEDS ORDERED: ACETAMINOPHEN 325 MG TAB PO PRN (05:30)
[2017-08-04] MEDS ORDERED: LACTULOSE SYRUP 20 GM/30 ML CUP PO PRN (05:30)
[2017-08-04] MEDS: SODIUM CHLOR 0.9% 1000 ML INJ 1,000 ML IV SCH ×2 (05:55→17:48)
[2017-08-04] MEDS: diphenhydrAMINE HCL 50 MG/ML VIAL IV PUSH SCH ×3 (05:55→17:46)
[2017-08-04] MEDS ORDERED: FAMOTIDINE 20 MG/2 ML VIAL IV PUSH SCH (06:00)
[2017-08-04] MEDS: methylPREDNISolone SOD SUCC 40 MG/1 ML VIAL IV PUSH SCH ×3 (06:06→17:46)
[2017-08-04 06:16] LABS: AUTOMATED NEUTROPHIL # 9.1 TH/MM3 (1.8-7.7); BASOPHIL % 0.3 % (0.0-2.0); EOSINOPHIL # 0.2 TH/MM3 (0-0.4); EOSINOPHIL % 1.7 % (0.0-4.0); HEMATOCRIT 41.3 % (35.0-46.0); HEMOGLOBIN 13.7 GM/DL (11.6-15.3); LYMPH % 12.5 % (9.0-44.0); LYMPHOCYTE # 1.4 TH/MM3 (1.0-4.8); MEAN CELL VOLUME 89.5 FL (80.0-100.0); MEAN CORPUSCULAR HEMOGLOBIN 29.6 PG (27.0-34.0); MEAN CORPUSCULAR HGB CONC 33.1 % (32.0-36.0); MEAN PLATELET VOLUME 7.3 FL (7.0-11.0); MONO % 6.2 % (0.0-8.0); MONOCYTE # 0.7 TH/MM3 (0-0.9); NEUT % 79.3 % (16.0-70.0); PLATELET COUNT 305 TH/MM3 (150-450); RED BLOOD COUNT 4.62 MIL/MM3 (4.00-5.30); RED CELL DISTRIBUTION WIDTH 15.5 % (11.6-17.2); WHITE BLOOD COUNT 11.4 TH/MM3 (4.0-11.0)
[2017-08-04 06:29] LABS: BICARBONATE 25.9 MEQ/L (21.0-32.0); CALCIUM 8.8 MG/DL (8.5-10.1); CREATININE 1.46 MG/DL (0.50-1.00)
[2017-08-04] MEDS: FAMOTIDINE 20 MG/2 ML VIAL IV PUSH SCH ×2 (09:21→22:07)
[2017-08-04] MEDS: DOCUSATE SODIUM 50 MG/SENNA 8.6 MG TAB PO SCH ×2 (09:22→22:08)
[2017-08-04] MEDS: SODIUM CHLORIDE 0.9% FLUSH 10 ML FLUSH IV FLUSH SCH ×2 (09:23→22:01)
--- NOTE | 2017-08-04 09:59 | HHI.HP ---
HPI Service [facility] Primary Care Physician Unknown Admission Diagnosis lip/tongue swelling, allergic reaction Diagnoses: Chief Complaint: lip/tongue swelling Travel History International Travel<30 Days: No Contact w/Intl Traveler <30 Da: No Traveled to Known Affected Are: No History of Present Illness 87-year-old female with history of arthritis, anxiety, HTN, HLD, COPD, bradycardia s/p pacer, presents with acute onset of lip/tongue paresthesias and swelling. The patient reports last night 08/03/17 around 10 PM, she started to feel extremely pruritic, itching all over extremities without any noticeable rash, and shortly after started to have lip/tongue numbness, tingling, and swelling. She states when she started to feel the tightness in her throat, she decided to call 911. She denies any dysphagia/odynophagia or shortness of breath. Reportedly [facility] did not notice any significant allergic reaction, however she was given IV Benadryl 50 mg 1. It was noticed in the ER that her lips and tongue began to swell. The patient denies any history of allergic reaction. She states she has been on ramipril for many years. She denies any new medications over the past few months. She states she does not fill her prescriptions therefore she does not know if there are any new formulations of her medications. She does use topical lidocaine at home for vaginal discomfort however she states she is very careful with this medication and always washes her hands vigorously after application. She also did take a percocet last night but she has also been on this medication for years. The patient denies any history of food allergies or even seasonal allergies. Currently the patient is seen in the observation unit after receiving IV Benadryl, IV Pepcid, and IV steroids. She states her lip and tongue swelling has improved however not yet back to baseline. She continues to deny any dysphagia or dyspnea. She denies any other medical complaints including no fevers/chills, chest pain, palpitations, abdominal pain, nausea/vomiting, or urinary complaints. Review of Systems Except as stated in HPI: all other systems reviewed are Neg Past Family Social History Past Medical History arthritis anxiety HTN HLD COPD bradycardia s/p pacer bleeding gastric ulcer bowel obstruction chronic lymphedema bilateral lower extremities Past Surgical History pacemaker placement gastric ulcer perforation repair colon resection appendectomy cataract removal bilateral total knee arthroplasty bilateral total hip arthroplasty parathyroidectomy Reported Medications Ramipril 5 Mg Cap 5 Mg PO BID Lidocaine Topical (Lidocaine HCl) 5 % Oint 1 Applic TOPICAL DAILY PRN Celecoxib 200 Mg Cap 200 Mg PO BID Oxycodone-Acetaminophen 5-325 mg Tab 1 Tab PO Q6H PRN Gabapentin 600 Mg Tab 600 Mg PO BID Ambien (Zolpidem Tartrate) 10 Mg Tab 10 Mg PO HS Alprazolam 0.25 Mg Tab 0.25 Mg PO HS Citalopram (Citalopram Hydrobromide) 20 Mg Tab 20 Mg PO DAILY Atorvastatin (Atorvastatin Calcium) 20 Mg Tab 20 Mg PO HS Allergies: Coded Allergies: No Known Allergies (Unverified Allergy, Unknown, 08/04/17) Active Ordered Medications Current Medications Medications (Trade) Dose Ordered Sig/Hiarl Route Start Time Stop Time Status Last Admin (SoluMEDROL INJ) 40 mg Q6HR IV PUSH 08/04/17 06:00 08/04/17 12:31 (Benadryl Inj) 25 mg Q6H IV PUSH 08/04/17 06:00 08/04/17 12:31 Sodium Chloride 1,000 ml @ 100 mls/hr Q10H IV 08/04/17 05:27 08/04/17 05:55 (NS Flush) 2 ml UNSCH PRN IV FLUSH 08/04/17 05:30 (NS Flush) 2 ml BID IV FLUSH 08/04/17 09:00 08/04/17 09:23 (Zofran Inj) 4 mg Q6H PRN IVP 08/04/17 05:30 (Tylenol) 650 mg Q6H PRN PO 08/04/17 05:30 ([place] 5-325 Mg) 1 tab Q4H PRN PO 08/04/17 05:30 08/04/17 06:05 (Morphine Inj) 2 mg Q3H PRN IV PUSH 08/04/17 05:30 (Deb-Colace) 1 tab BID PO 08/04/17 09:00 08/04/17 09:22 (Milk Of Magnesia Liq) 30 ml Q12H PRN PO 2/11/18 05:30 (Senokot) 17.2 mg Q12H PRN PO 08/04/17 05:30 (Dulcolax Supp) 10 mg DAILY PRN RECTAL 08/04/17 05:30 (Lactulose Liq) 30 ml DAILY PRN PO 08/04/17 05:30 (Pepcid Inj) 10 mg Q12H IV PUSH 08/04/17 09:30 08/04/17 09:21 Family History Mother with arthritis, age 95 Father with stroke, heart disease, age 74 Social History Prior tobacco use 1PPD from age 14 to 50 Denies any alcohol use Denies any illicit drug use Lives with a friend Ambulates independently Physical Exam Vital Signs Vital Signs Date Time Temp Pulse Resp B/P (MAP) Pulse Ox O2 Delivery O2 Flow Rate FiO2 08/04/17 07:37 98.7 65 18 139/60 (86) 98 08/04/17 06:25 08/04/17 04:51 52 16 122/60 (80) 98 08/04/17 01:19 97.6 63 18 111/59 (76) 96 Physical Exam GENERAL: Well-nourished, well-developed pleasant elderly female patient in [facility]. SKIN: Warm and dry. No rash. Very faint erythematous patchy macular rash with overlying excoriations on upper extremities; and few excoriations on lower extremities. HEAD: Normocephalic. Atraumatic. EYES: Pupils equal and round. No scleral icterus. No injection or drainage. ENT: No nasal bleeding or discharge. Mucous membranes pink and moist. Mild lower lip swelling and some mild tongue swelling. Airway patent. NECK: Supple. Trachea midline. CARDIOVASCULAR: Regular rate and rhythm. S1, S2 noted. No murmur appreciated. RESPIRATORY: No accessory muscle use. Clear to auscultation. Breath sounds equal bilaterally. GASTROINTESTINAL: Abdomen soft, non-tender, nondistended. Normoactive bowel sounds x4. MUSCULOSKELETAL: No obvious deformities. Chronic bilateral nonpitting lymphedema. NEUROLOGICAL: Awake and alert. No obvious cranial nerve deficits. Motor grossly within normal limits. Normal speech. PSYCHIATRIC: Appropriate mood and affect; insight and judgment normal. Laboratory Laboratory Tests Test 08/04/17 05:31 White Blood Count 11.4 Red Blood Count 4.62 Hemoglobin 13.7 Hematocrit 41.3 Mean Corpuscular Volume 89.5 Mean Corpuscular Hemoglobin 29.6 Mean Corpuscular Hemoglobin Concent 33.1 Red Cell Distribution Width 15.5 Platelet Count 305 Mean Platelet Volume 7.3 Neutrophils (%) (Auto) 79.3 Lymphocytes (%) (Auto) 12.5 Monocytes (%) (Auto) 6.2 Eosinophils (%) (Auto) 1.7 Basophils (%) (Auto) 0.3 Neutrophils # (Auto) 9.1 Lymphocytes # (Auto) 1.4 Monocytes # (Auto) 0.7 Eosinophils # (Auto) 0.2 Basophils # (Auto) 0.0 CBC Comment DIFF FINAL Differential Comment Blood Urea Nitrogen 39 Creatinine 1.46 Random Glucose 120 Calcium Level 8.8 Sodium Level 138 Potassium Level 4.6 Chloride Level 105 Carbon Dioxide Level 25.9 Anion Gap 7 Estimat Glomerular Filtration Rate 34 Result Diagram: 08/04/1753008/04/17530 Caprini VTE Risk Assessment Caprini VTE Risk Assessment: Mod/High Risk (score >= 2) Caprini Risk Assessment Model Point Value = 1 Point Value = 2 Point Value = 3 Point Value = 5 Age 41-60 Minor surgery BMI > 25 kg/m2 Swollen legs Varicose veins or History of unexplained or recurrent spontaneous Oral contraceptives or hormone replacement Sepsis (< 1 month) Serious lung disease, including pneumonia (< 1 month) Abnormal pulmonary function Acute myocardial infarction Congestive heart failure (< 1 month) History of inflammatory bowel disease Medical patient at bed rest Age 61-74 Arthroscopic surgery Major open surgery (> 45 min) Laparoscopic surgery (> 45 min) Malignancy Confined to bed (> 72 hours) Immobilizing plaster cast Central venous access Age >= 75 History of VTE Family history of VTE Factor V Leiden Prothrombin [id number] Lupus anticoagulant Anticardiolipin antibodies Elevated serum homocysteine Heparin-induced thrombocytopenia Other congenital or acquired thrombophilia Stroke (< 1 month) Elective arthroplasty Hip, pelvis, or leg fracture Acute spinal cord injury (< 1 month) Prophylaxis Regimen Total Risk Factor Score Risk Level Prophylaxis Regimen 0-1 Low Early ambulation 2 Moderate Order ONE of the following: *Sequential Compression Device (SCD) *Heparin 5000 units SQ BID 3-4 Higher Order ONE of the following medications: *Heparin 5000 units SQ TID *Enoxaparin/Lovenox 40 mg SQ daily (WT < 150 kg, CrCl > 30 mL/min) *Enoxaparin/Lovenox 30 mg SQ daily (WT < 150 kg, CrCl > 10-29 mL/min) *Enoxaparin/Lovenox 30 mg SQ BID (WT < 150 kg, CrCl > 30 mL/min) AND/OR *Sequential Compression Device (SCD) 5 or more Highest Order ONE of the following medications: *Heparin 5000 units SQ TID (Preferred with Epidurals) *Enoxaparin/Lovenox 40 mg SQ daily (WT < 150 kg, CrCl > 30 mL/min) *Enoxaparin/Lovenox 30 mg SQ daily (WT < 150 kg, CrCl > 10-29 mL/min) *Enoxaparin/Lovenox 30 mg SQ BID (WT < 150 kg, CrCl > 30 mL/min) AND *Sequential Compression Device (SCD) Assessment and Plan Problem List: (1) Allergic reaction ICD Code: T78.40XA - Allergy, unspecified, initial encounter (2) Angio-edema ICD Code: T78.3XXA - Angioneurotic edema, initial encounter Status: Acute Assessment and Plan 87-year-old female with history of arthritis, anxiety, HTN, HLD, COPD, bradycardia s/p pacer, presents with acute onset of lip/tongue paresthesias and swelling. Allergic Reaction: suspect likely etiology is ramipril. -discontinue all FLO/ARBs -Continue IV Benadryl 25mg q6h, IV Pepcid 10mg bid, IV Solumedrol 40mg q6h -Supportive treatment with IVF -Patient improving, continue to monitor URBAN: Cr 1.46 upon arrival, previously around 1.0-1.2 in . -give IVF hydration -avoid nephrotoxins -repeat labs in am Hypertension: BP currently well controlled -discontinued ramipril as above -monitor BP, add antihypertensives as needed -Clonidine prn Hyperlipidemia: chronic -continue patient's statin Anxiety/Depression/Chronic Pain: chronic -continue patient's celecoxib, citalopram, gabapentin, xanax prn, percocet prn DVT Prophylaxis: heparin sq Discussed Condition With Patient, RN Problem Qualifiers (1) Angio-edema: Qualified Codes: T78.3XXA - Angioneurotic edema, initial encounter Cheryl Sanchez PA-C Aug 04, 2017 9:59 am
[2017-08-04] MEDS ORDERED: LIDO5%T TOPICAL (10:54)
[2017-08-04] MEDS ORDERED: ZOLPIDEM TARTRATE 10 MG TAB PO PRN (14:45)
[2017-08-04] MEDS ORDERED: ALPRAZolam 0.25 MG TAB PO PRN (14:45)
[2017-08-04] MEDS ORDERED: LIDOCAINE HCL 5% OINT 37 GM TUBE TOPICAL PRN (14:45)
[2017-08-04] MEDS ORDERED: oxyCODONE/ACETAMINOPHEN 5 MG/325 MG TAB PO PRN (14:45)
[2017-08-04] MEDS: GABAPENTIN 300 MG CAP PO SCH ×2 (21:00→22:01)
[2017-08-04] MEDS ORDERED: ATORVASTATIN 20 MG TAB PO SCH (21:00)
[2017-08-04] MEDS: CELECOXIB 200 MG CAP PO SCH (22:02)
[2017-08-04] MEDS: HEPARIN SODIUM - SQ 10,000 UNITS/ML VIAL SQ SCH (22:08)
[2017-08-05] MEDS: methylPREDNISolone SOD SUCC 40 MG/1 ML VIAL IV PUSH SCH ×2 (00:13→06:00)
[2017-08-05] MEDS: diphenhydrAMINE HCL 50 MG/ML VIAL IV PUSH SCH ×2 (01:20→06:00)
[2017-08-05] MEDS: SODIUM CHLOR 0.9% 1000 ML INJ 1,000 ML IV SCH (02:39)
[2017-08-05 03:00] VITALS: BP 129/60; PULSE 66; RESP 18; TEMP 97.8; O2SAT 97
[2017-08-05 08:02] VITALS: BP 164/77; PULSE 62; RESP 20; TEMP 98.1; O2SAT 93
[2017-08-05] MEDS ORDERED: FAMOTIDINE 20 MG TAB PO SCH (09:00)
[2017-08-05] MEDS ORDERED: predniSONE 20 MG TAB PO SCH (09:00)
[2017-08-05] MEDS ORDERED: diphenhydrAMINE HCL 25 MG CAP PO SCH (09:00)
[2017-08-05] MEDS ORDERED: CITALOPRAM HYDROBROMIDE 20 MG TAB PO SCH (09:00)
[2017-08-05] MEDS ORDERED: EPIN1INJ17 IM (09:11)
[2017-08-05] MEDS ORDERED: FAMO20TA2 PO (09:13)
[2017-08-05] MEDS ORDERED: BENA25CA4 PO (09:13)
[2017-08-05] MEDS ORDERED: PRED20 PO (09:13)
--- NOTE | 2017-08-05 09:16 | HHI.DCPOC ---
Discharge Care Plan Diagnosis: (1) Anaphylaxis (2) Allergic reaction (3) Allergy to FLO inhibitors Goals to Promote Your Health * To prevent worsening of your condition and complications * To maintain your health at the optimal level Directions to Meet Your Goals Take your medications as prescribed Follow your dietary instruction Follow activity as directed Keep your appointments as scheduled Take your immunizations and boosters as scheduled If your symptoms worsen call your PCP, if no PCP go to Urgent Care Center or Emergency Room Smoking is Dangerous to Your Health. Avoid second hand smoke Call the 24-hour hour crisis hotline for domestic abuse at Cheryl Sanchez PA-C Aug 05, 2017 9:16 am
--- NOTE | 2017-08-05 09:23 | HHI.PR ---
Subjective Remarks Follow up for allergic reaction. The patient reports feeling back to normal today. She denies any rash or pruritus. Denies any lip, tongue, or throat swelling. Denies any trouble breathing. She has been tolerating oral intake without difficulty. Patient seen ambulating the unit with the walker. She has no other medical complaints at this time. Objective Vitals Vital Signs Date Time Temp Pulse Resp B/P (MAP) Pulse Ox O2 Delivery O2 Flow Rate FiO2 08/05/17 08:02 98.1 62 20 164/77 (106) 93 08/05/17 03:00 97.8 66 18 129/60 (83) 97 08/04/17 20:25 97.6 65 18 130/67 (88) 95 08/04/17 16:05 98.4 110 20 150/75 (100) 94 08/04/17 12:09 97.5 63 18 133/66 (88) 95 08/04/17 10:59 97.7 65 18 125/65 (85) 96 08/04/17 10:59 97.7 65 18 125/65 (85) 96 Result Diagram: 08/04/17 0531 08/04/17 0531 Objective Remarks GENERAL: Well-nourished, well-developed pleasant elderly female patient in [facility]. SKIN: Warm and dry. Rash resolved today. Still some healing excoriations on lower extremities from itching. HEENT: Normocephalic. Atraumatic. Pupils equal and round. Mucous membranes pink and moist. No lip/tongue/throat edema today, swelling resolved. Airway patent. NECK: Supple. Trachea midline. CARDIOVASCULAR: Regular rate and rhythm. S1, S2 noted. No murmur appreciated. RESPIRATORY: No accessory muscle use. Clear to auscultation. Breath sounds equal bilaterally. GASTROINTESTINAL: Abdomen soft, non-tender, nondistended. Normoactive bowel sounds x4. MUSCULOSKELETAL: No obvious deformities. Chronic bilateral nonpitting lymphedema. NEUROLOGICAL: Awake and alert. No obvious cranial nerve deficits. Motor grossly within normal limits. Normal speech. PSYCHIATRIC: Appropriate mood and affect; insight and judgment normal. Medications and IVs Current Medications Medications (Trade) Dose Ordered Sig/Hiral Route Start Time Stop Time Status Last Admin (NS Flush) 2 ml UNSCH PRN IV FLUSH 08/04/17 05:30 (NS Flush) 2 ml BID IV FLUSH 08/04/17 09:00 08/04/17 22:01 (Zofran Inj) 4 mg Q6H PRN IVP 08/04/17 05:30 (Tylenol) 650 mg Q6H PRN PO 08/04/17 05:30 08/05/17 00:19 (Deb-Colace) 1 tab BID PO 08/04/17 09:00 08/05/17 09:36 (Milk Of Magnesia Liq) 30 ml Q12H PRN PO 08/04/17 05:30 (Senokot) 17.2 mg Q12H PRN PO 08/04/17 05:30 (Dulcolax Supp) 10 mg DAILY PRN RECTAL 08/04/17 05:30 (Lactulose Liq) 30 ml DAILY PRN PO 08/04/17 05:30 (Xanax) 0.25 mg HS PRN PO 08/04/17 14:45 08/05/17 00:13 (Lipitor) 20 mg HS PO 08/04/17 21:00 08/04/17 22:01 (CeleBREX) 200 mg BID PO 08/04/17 21:00 08/05/17 09:36 (CeleXA) 20 mg DAILY PO 08/05/17 09:00 08/05/17 09:40 (Neurontin) 600 mg BID PO 08/04/17 21:00 08/05/17 09:36 (Xylocaine 5% Oint) 1 applic DAILY PRN TOPICAL 08/04/17 14:45 (Percocet 5-325 Mg) 1 tab Q6H PRN PO 08/04/17 14:45 (Ambien) 10 mg HS PRN PO 08/04/17 14:45 08/05/17 00:13 (Heparin Inj) 5,000 units Q12HR SQ 08/04/17 21:00 08/05/17 09:37 (Pepcid) 10 mg BID PO 08/05/17 09:00 08/05/17 09:40 (Deltasone) 20 mg BID PO 08/05/17 09:00 08/05/17 09:41 (Benadryl) 25 mg Q6H PO 08/05/17 09:00 08/05/17 09:40 A/P Problem List: (1) Allergic reaction ICD Code: T78.40XA - Allergy, unspecified, initial encounter (2) Angio-edema ICD Code: T78.3XXA - Angioneurotic edema, initial encounter Status: Acute Assessment and Plan 87-year-old female with history of arthritis, anxiety, HTN, HLD, COPD, bradycardia s/p pacer, presents with acute onset of lip/tongue paresthesias and swelling. Allergic Reaction: suspect likely etiology is ramipril. -discontinue all FLO/ARBs -Given IV Benadryl 25mg q6h, IV Pepcid 10mg bid, IV Solumedrol 40mg q6h -Supportive treatment with IVF -Symptoms all resolved -Discharging on short term pepcid, benadryl, prednisone, and Epipen prn -Patient educated on her new allergy to ramipril and all FLO/ARB medications URBAN: Cr 1.46 upon arrival, previously around 1.0-1.2 in . -give IVF hydration -avoid nephrotoxins -ramipril discontinued as above -repeat labs show improvement with Cr 1.30 -check BMP as outpatient in 1 week and f/up with PCP Hypertension: BP currently well controlled -discontinued ramipril as above -monitor BP, add antihypertensives as needed -Clonidine prn Hyperlipidemia: chronic -continue patient's statin Anxiety/Depression/Chronic Pain: chronic -continue patient's celecoxib, citalopram, gabapentin, xanax prn, percocet prn DVT Prophylaxis: heparin sq Discharge Planning Discharge patient to home Condition on discharge: Stable Regular Diet as tolerated Ad Kristen activity Rx written: pepcid 10mg bid x5days, prednisone 20mg bid x5days, benadryl 25mg q6h x5days, Epipen prn Follow-up with primary care physician Dr. Xiao within 1 week Check BMP in 1 week Problem Qualifiers (1) Angio-edema: Qualified Codes: T78.3XXA - Angioneurotic edema, initial encounter Cheryl Sanchez PA-C Aug 05, 2017 9:23 am
[2017-08-05] MEDS: GABAPENTIN 300 MG CAP PO SCH (09:36)
[2017-08-05] MEDS: CELECOXIB 200 MG CAP PO SCH (09:36)
[2017-08-05] MEDS: DOCUSATE SODIUM 50 MG/SENNA 8.6 MG TAB PO SCH (09:36)
[2017-08-05] MEDS: HEPARIN SODIUM - SQ 10,000 UNITS/ML VIAL SQ SCH (09:37)
[2017-08-05] MEDS: SODIUM CHLORIDE 0.9% FLUSH 10 ML FLUSH IV FLUSH SCH (09:41)
[2017-08-05 10:01] LABS: AUTOMATED NEUTROPHIL # 16.6 TH/MM3 (1.8-7.7); BASOPHIL % 0.1 % (0.0-2.0); HEMATOCRIT 38.2 % (35.0-46.0); HEMOGLOBIN 12.6 GM/DL (11.6-15.3); LYMPH % 8.1 % (9.0-44.0); LYMPHOCYTE # 1.5 TH/MM3 (1.0-4.8); MEAN CELL VOLUME 89.8 FL (80.0-100.0); MEAN CORPUSCULAR HEMOGLOBIN 29.6 PG (27.0-34.0); MEAN PLATELET VOLUME 7.9 FL (7.0-11.0); MONO % 2.3 % (0.0-8.0); MONOCYTE # 0.4 TH/MM3 (0-0.9); NEUT % 89.5 % (16.0-70.0); PLATELET COUNT 287 TH/MM3 (150-450); RED BLOOD COUNT 4.26 MIL/MM3 (4.00-5.30); RED CELL DISTRIBUTION WIDTH 15.6 % (11.6-17.2); WHITE BLOOD COUNT 18.6 TH/MM3 (4.0-11.0)
[2017-08-05 10:27] LABS: ALT (GPT) 18 U/L (10-53)
[2017-08-05 10:30] LABS: ALKALINE PHOSPHATASE 139 U/L (45-117); TOTAL BILIRUBIN ADULT 0.4 MG/DL (0.2-1.0); TOTAL PROTEIN 7.8 GM/DL (6.4-8.2)
[2017-08-05 10:32] LABS: ALBUMIN 3.5 GM/DL (3.4-5.0); AST (GOT) 24 U/L (15-37); BICARBONATE 21.2 MEQ/L (21.0-32.0); BLOOD UREA NITROGEN 40 MG/DL (7-18); CHLORIDE 106 MEQ/L (98-107); GLOMERULAR FILTRATION RATE 39 ML/MIN (>89); GLUCOSE,RANDOM 130 MG/DL (74-106); SODIUM (NA) 138 MEQ/L (136-145)
[2017-08-05 11:44] VITALS: BP 150/67; PULSE 69; RESP 21; TEMP 97.8; O2SAT 93
== END 2017-08-05 11:52 | disposition home or self-care (01) ==
LOC: NEPE 01:09 → NEDA 05:28 → NEPHCDU 06:17
PROVIDERS: ADMIT Internal Medicine; ATTEND Internal Medicine
DX: T78.3XXA Angioneurotic edema, initial encounter (principal); T78.2XXA Anaphylactic shock, unspecified, initial encounter; M19.90 Unspecified osteoarthritis, unspecified site; F41.9 Anxiety disorder, unspecified; E78.00 Pure hypercholesterolemia, unspecified; J44.9 Chronic obstructive pulmonary disease, unspecified; I10 Essential (primary) hypertension; Z79.899 Other long term (current) drug therapy; Z95.0 Presence of cardiac pacemaker; E78.5 Hyperlipidemia, unspecified; R00.1 Bradycardia, unspecified; I89.0 Lymphedema, not elsewhere classified; Z87.11 Personal history of peptic ulcer disease; Z87.891 Personal history of nicotine dependence; T78.40XA Allergy, unspecified, initial encounter; N17.9 Acute kidney failure, unspecified; G89.29 Other chronic pain; F32.9 Major depressive disorder, single episode, unspecified; Z88.8 Allergy status to other drugs, medicaments and biological substances
CPT/HCPCS: 80048; 80053; 85025; 96361; 96372; 96374; 96375; 96376; 99285; G0378; J1200; J1644; J2920; J2930; J7030; J7512